=== PATIENT | female | born 1965 | race Asian ===

== ENCOUNTER 2024-08-08 14:58 | Emergency (ER) | payer OTHER ==
[2024-08-08 15:10] VITALS: BP 123/77; PULSE 83; RESP 16; TEMP 98.2; BMI 26.9
[2024-08-08] MEDS ORDERED: LIDOCAINE VISCOUS 2% ORAL/TOP 15 ML UNIT-DOSE CUP ONE (16:24)
[2024-08-08] MEDS: LIDOCAINE VISCOUS 2% ORAL/TOP 15 ML UNIT-DOSE CUP MM ONE (16:31)
== END 2024-08-08 19:31 | disposition home or self-care (01) ==
LOC: JER 14:58
DX: T17.228A Food in pharynx causing other injury, initial encounter (principal); W44.F3XA Food entering into or through a natural orifice, initial encounter
CPT/HCPCS: 70360-TC-FY; 70490-TC; 99284-25